=== PATIENT | male | born 1975 | race Caucasian/White ===

== ENCOUNTER 2016-07-13 06:05 | Day surgery (SDC) | payer BC ==
[~2016-07-13] VITALS: Ht 175.3 cm; Wt 62.1 kg
[2016-07-13 06:05] VITALS: Ht 175.3 cm; Wt 62.1 kg
[2016-07-13 06:06] VITALS: BP 104/59; PULSE 84; RESP 20
[2016-07-13] MEDS ORDERED: CLINDAMYCIN 900 MG/D5W (PMX) 50 ML IVPB SCH (06:30)
== END 2016-07-13 06:45 | disposition home or self-care (01) ==
LOC: SDS 06:05
PROVIDERS: ATTEND Surgery
DX: L05.91 Pilonidal cyst without abscess (principal); Z53.29 Procedure and treatment not carried out because of patient's decision for other reasons